=== PATIENT | female | born 1955 | race Two or more races ===

== ENCOUNTER → 2024-10-12 | Outpatient (CLI) | payer MEDICARE, OTHER, SELFPAY ==
--- NOTE | 2024-10-12 | XR_ITS ---
Examination: Screening digital mammography, bilateral Computer aided detection 3-D breast Tomosynthesis, bilateral Date and time of exam: October 12, 2024 1549 hours Compared to mammograms dating to February 20, 2019 Indication: Screening Technique: Nonmagnified MLO, CC views of the breasts to been obtained, reconstructed from 3-D Tomosynthesis images. R2 computer aided detection program utilized for evaluation of suspicious masses and/or abnormal calcifications. 3-D Tomosynthesis images obtained. Findings: Scattered areas of fibroglandular density Benign calcifications 10 mm focal asymmetry upper right breast posterior depth, 5.2 cm from the nipple Impression: BI-RADS Category 0: Incomplete: Need additional imaging evaluation 10 mm focal asymmetry upper right breast posterior depth, 5.2 cm from the nipple, recommend follow-up spot tomographic views upper outer quadrant right breast posterior depth, right breast sonography to complete the workup.
== END | disposition home or self-care (01) ==
PROVIDERS: Referring Provider Family Medicine; Visit Provider Family Medicine
DX: Z12.31 Encounter for screening mammogram for malignant neoplasm of breast (principal); N64.89 Other specified disorders of breast
CPT/HCPCS: 77063; 77067

== ENCOUNTER → 2024-10-14 | Outpatient (CLI) | payer MEDICARE, OTHER, SELFPAY ==
--- NOTE | 2024-10-14 14:56 | XR_ITS ---
Examination: Breast ultrasound, unilateral, right complete Date and time of exam: October 14, 2024 5006 hours INDICATIONS: Mammogram October 12, 2024 10 mm focal asymmetry upper right breast posterior depth Technique: Real-time bueno scale ultrasonographic imaging performed right breast including all 4 quadrants as well as nipple retroareolar and axillary region. Findings: No cystic or solid mass IMPRESSION: BI-RADS Category 1: Negative study
--- NOTE | 2024-10-14 14:56 | XR_ITS ---
Examination: Diagnostic digital mammography, unilateral, right Computer aided detection 3-D breast Tomosynthesis, unilateral Date and time of exam: October 14, 2024 1527 hours INDICATIONS: Mammogram October 12, 2024 10 mm focal asymmetry upper right breast Technique: Nonmagnified MLO, CC views of the right breast have been obtained, reconstructed from 3-D Tomosynthesis images. R2 computer aided detection program utilized for evaluation of suspicious masses and/or abnormal calcifications. 3-D Tomosynthesis images obtained. Findings: Scattered areas of fibroglandular density. Persistent focal asymmetry upper right breast MLO view Impression: BI-RADS category 3: Probably benign findings. One additional 6 month right mammogram follow-up is needed
== END | disposition home or self-care (01) ==
PROVIDERS: PCP Family Medicine; Referring Provider Family Medicine; Visit Provider Family Medicine
DX: R92.331 Mammographic heterogeneous density, right breast (principal); N64.89 Other specified disorders of breast
CPT/HCPCS: 76641; 77061; 77065; G0279

== ENCOUNTER 2024-12-09 16:12 | Emergency (ER) | payer MEDICARE, OTHER, SELFPAY ==
[2024-12-09 16:14] VITALS: BMI 23.4
[2024-12-09 17:09] VITALS: BP 138/55; PULSE 62; RESP 18; TEMP 36.4; O2SAT 99
--- NOTE | 2024-12-09 17:14 | XR_ITS ---
Examination: AP chest single view TECHNIQUE: AP portable upright chest single view Exam date and time: December 09, 2024 1722 hours INDICATIONS: Dizziness today FINDINGS: Normal heart size. Lungs are clear. Moderate osteopenia IMPRESSION: No active disease
--- NOTE | 2024-12-09 17:14 | XR_ITS ---
Examination: CT brain head without contrast. 2-D sagittal coronal reconstructions Date and time of exam:December 09, 2024 1113 hours Dizziness and ringing in ears beginning 2 days ago CTDI: vol (mGy):46.31 DLP: (mGycm):908 Technique: Multiple CT axial sections of the brain have been obtained, 5 mm slice thickness. Contrast has not been administered. Low dose protocols were performed. One or more of the following dose reduction techniques were used; automated exposure control, adjustment of the mA and/or KV according to patient size, use of iterative reconstruction technique. Findings: No significant ventricular enlargement. Probable areas of encephalomalacia left parietal lobe right posterior temporal lobe Intra-axial or extra-axial hemorrhage density is not seen. No mass effect or midline shift Basal cisterns are not remarkable. Fourth ventricle is midline. Cranial vault intact. Impression: Negative for acute hemorrhage, mass effect or midline shift Probable areas of encephalomalacia as above but clinical correlation advised If symptoms persist, consider brain MRI follow-up, stroke protocol
--- NOTE | 2024-12-09 17:14 | EKG_ITS ---
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
--- NOTE | 2024-12-09 17:15 | EDRME_ITS ---
Rapid Medical Screening Exam RME Arrival date/time: 12/09/24 16:12 This is a 69-year-old female presents to the emergency department with complaints of dizziness x 1 day associated with nausea. Recent upper respiratory infection. I have greeted and performed a focused initial assessment of this patient. Ini tial appropriate labs ordered at this time. A comprehensive ED assessment and evaluation of the patient and analysis of all test and completion of medical decision making process will be conducted by additional ED provider. Chief Complaint: Dizziness Time Seen by Provider: 12/09/24 16:51 Vital signs: Vital Signs Temperature 97.5 F 12/09/24 17:09 Pulse Rate 62 12/09/24 17:09 Respiratory Rate 18 12/09/24 17:09 Blood Pressure 138/55 H 12/09/24 17:09 Pulse Oximetry (%) 99 12/09/24 17:09 Oxygen Delivery Method Room Air 12/09/24 17:09
--- NOTE | 2024-12-09 17:16 | XR_ITS ---
Examination: CTA brain, head with intravenous contrast. 2-D sagittal, coronal reconstructions. 3-D reconstructions. Exam date and time: December 09, 2024 1113 hours INDICATIONS: Onset dizziness head pain today CTDI: vol (mGy) 45.5 DLP: (mGycm) 942 Technique: Multiple CTA axial brain, head carotid images post intravenous contrast injection 75 cc, [id number]. 2-D sagittal, coronal reconstructions. 3-D reconstructions, 3-D post processing including vascular maximum intensity projection images. Low dose protocols were performed. One or more of the following dose reduction techniques were used; automated exposure control, adjustment of the mA and/or KV according to patient size, use of iterative reconstruction technique. Findings: No cerebral large vessel arterial occlusions or thrombus M1 segments middle cerebral arteries middle cerebral artery trifurcation vessels fill Anterior cerebral posterior cerebral artery branches fill with no large vessel occlusions IMPRESSION: No cerebral large vessel arterial occlusions If symptoms persist, consider brain MRI follow-up stroke protocol
[2024-12-09 18:27] LABS: Basophils % (Auto) 0 % (0-2.5); Eosinophils % (Auto) 0 % (0-10); Hematocrit 33.9 % (36.0-46.0); Hemoglobin 11.8 g/dL (12.0-16.0); Immature Granulocytes % (Auto) 1 % (0-0); Immature Granulocytes Auto 0.06 Thou/mm3 (0.00-0.00); Lymphocytes % (Auto) 17 % (10-50); Mean Corpuscular HGB Conc 34.8 g/dl (31.0-37.0); Mean Corpuscular Hemoglobin 31.8 pg (25.0-35.0); Mean Corpuscular Volume 91 fL (80-100); Monocytes # (Auto) 0.6 Thou/mm3 (0.0-0.8); Monocytes % (Auto) 5 % (0-12); Neutrophils # (Auto) 8.9 Thou/mm3 (1.8-7.7); Neutrophils % (Auto) 77 % (37-80); Nucleated Red Blood Cell % 0 /100 WBC (0); Platelet Count 312 Thou/mm3 (140-440); RDW Standard Deviation 40.7 fL (36.4-46.3); Red Blood Count 3.71 Miln/mm3 (4.00-5.20); White Blood Count 11.6 Thou/mm3 (3.6-11.0)
[2024-12-09 18:28] LABS: Collection Type, Urine Clean Catch; Squamous Epithelial Cell,Urine 0 /hpf (0-5)
[2024-12-09 18:42] LABS: Bilirubin,Urine Negative (Negative); Blood,Urine Negative (Negative); Clarity,Urine Clear (Clear/Hazy); Color,Urine Lt-Yellow (Lt Yel-Yel); Glucose, Urine Negative (Negative); Ketones,Urine Negative (Negative); Leukocyte Esterase,Urine Negative (Negative); Nitrite,Urine Negative (Negative); PH,Urine 7.5 (5.0-7.0); Protein,Urine Negative (Neg - Trace); RBC,Urine 1 /hpf (0-3); Specific Gravity,Urine 1.012 (1.001-1.035); Urobilinogen,Urine Negative mg/dL (0.0-1.0); WBC,Urine 2 /hpf (0-5)
[2024-12-09 18:52] LABS: Partial Thromboplastin Time 24.8 Seconds (22.0-36.0); Prothrombin Time 10.9 Seconds (9.0-12.2)
[2024-12-09 18:56] LABS: Alanine Aminotransferase 18 U/L (10-49); Albumin, Serum 4.9 gm/dL (3.4-4.8); Albumin/Globulin Ratio 1.5 (1.2-2.2); Alkaline Phosphatase 83 U/L (46-116); Anion Gap 15 (7-16); Aspartate Amino Transferase 24 U/L (0-34); BUN/Creatinine Ratio 16 Ratio (12-20); Bilirubin,Total 0.5 mg/dL (0.3-1.2); Blood Urea Nitrogen 13 mg/dL (9-23); Calcium 9.9 mg/dL (8.3-10.6); Calcium (Corrected) 9.9 mg/dL (8.5-10.1); Carbon Dioxide 23.1 mMol/L (20.0-31.0); Chloride 104 mMol/L (98-107); Creatinine (Component) 0.8 mg/dL (0.6-1.3); Estimated Creatinine Clearance 46.3 mL/min (>60); Globulin 3.3 gm/dL (2.3-3.5); Glucose 117 mg/dL (74-106); Osmolality,Calculated 284 (275-295); Potassium 3.2 mMol/L (3.4-5.1); Sodium 142 mMol/L (136-145); Total Protein 8.2 gm/dL (5.7-8.2); Troponin I < 0.020 ng/mL (0.0-0.045); eGFR > 60 See Note
[2024-12-09 20:35] LABS: Amphetamine/Methamp Scrn,U Negative (Negative); Barbiturate Screen,Urine Negative (Negative); Benzodiazepines Screen,Urine Negative (Negative); Benzoylecgonine Screen, Ur Negative (Negative); Fentanyl Screen,Urine Negative (Negative); Opiate Screen,Urine Negative (Negative); THC Screen,Urine Negative (Negative)
[2024-12-09 23:34] VITALS: BP 138/69; PULSE 60; RESP 16; TEMP 37; O2SAT 99
--- NOTE | 2024-12-10 01:18 | PRELIM_ITS ---
CT scan of the head without intravenous contrast (axial sections with sagittal and coronal reformats) December 09, 2024 2309 hours Clinical history: dizziness Reference is made to the prior report dated June 24, 2024. No images available. Findings: There is no evidence of intracranial hemorrhage, mass effect or midline shift. There are mild periventricular white matter hypodensities, suggestive of chronic small vessel ischemia. There are areas of encephalomalacia in the right temporal and left parietooccipital lobe. There is mild volume loss. The calvarium is unremarkable. The mastoid air cells are clear. There is a fluid level in the right maxillary sinus. Impression: No evidence of intracranial hemorrhage, mass effect or midline shift. Areas of encephalomalacia in the right temporal and left parietooccipital lobe. Right maxillary sinusitis. Other findings as described above. Report Electronically Signed By: Zbigniew Alfaro 12/10/2024 1:18:32 AM [EST]
--- NOTE | 2024-12-10 01:21 | PRELIM_ITS ---
CT angiogram of the head with intravenous contrast (axial sections with sagittal and coronal reformats) December 09, 2024 2313 hours Clinical History: dizziness, ringing ears Reference is made to the prior report dated December 30, 2021. Findings: Head: The internal carotid, middle and anterior cerebral arteries are patent bilaterally. The intracranial vertebral arteries are patent. The vertebrobasilar junction, basilar and posterior cerebral arteries are patent. The left vertebral artery is dominant. No evidence of large vessel occlusion, critical stenosis or aneurysm. Impression: No evidence of large vessel occlusion, critical stenosis or aneurysm. Report Electronically Signed By: Zbigniew Alfaro 12/10/2024 1:20:59 AM [EST]
[2024-12-10 03:30] VITALS: BP 144/76; PULSE 60; RESP 18; TEMP 36.9; O2SAT 99
--- NOTE | 2024-12-10 04:53 | EDNOTE_ITS ---
ED Dizzyness RME/HPI General Chief Complaint: Dizziness Stated Complaint: DIZZINESS, VOMITING, SOB FOR 2-3 HOURS Time Seen by Provider: 12/09/24 16:51 Arrival date/time: 12/09/24 16:12 RME / HPI RME / HPI Narrative: 12/09/24 16:12 This is a 69-year-old female presents to the emergency department with complaints of dizziness x 1 day associated with nausea. Recent upper respiratory infection. I have greeted and performed a focused initial assessment of this patient. Initial appropriate labs ordered at this time. A comprehensive ED assessment and evaluation of the patient and analysis of all test and completion of medical decision making process will be conducted by additional ED provider. Dr. Nunez?s Main ED Evaluation: 69yo female with a history of HTN presents to the ED for a chief complaint of dizziness x 1 day. She describes it as the room is spinning, reporting it worsens when she moves. She reports associated N/V and difficulty ambulating. She denies any numbness, tingling, difficulty speaking, difficulty swallowing or any other associated symptoms. She states she had one similar episode last month, but endorses her symptoms today were significantly worse. No known allergies. Related Data Previous Rx's ?Medication ?Instructions ?Recorded lorazepam 0.5 mg tablet 0.5 mg PO BID PRN anxiety #1 4 tabs 12/10/24 meclizine 25 mg tablet 25 mg PO TID PRN dizziness 1 0 days 12/10/24 #30 tabs Allergies Allergy/AdvReac Type Severity Reaction Status Date / Time No Known Allergies Allergy Verified 12/09/24 16:14 Review of Systems Review of Systems Systems Reviewed: All systems reviewed, normal except as documented Past Medical History Past Medical History CARDIAC: Positive Hypertension; Negative Cardiac Disorders RESPIRATORY: Negative Asthma GENITOURINARY: Negative Renal Disease ENDOCRINE: Negative Diabetes Mellitus Type 2 HEMATOLOGIC: Negative Sickle Cell Disease Social History SMOKING STATUS: Never smoker ED Exam Narrative Physical exam: GENERAL APPEARANCE: alert and oriented x 4, well-developed, well-nourished, no acute distress VITALS: All vitals were reviewed and the pulse ox is 99% on room air, which is normal according to my interpretation. HEENT: Normocephalic, atraumatic; pupils equal, round, reactive to light; EOMI; right horizontal nystagmus that is exacerbated with positional changes; mucous membranes pink, moist; oropharynx clear NECK: Supple LUNGS: CTABL; no wheezes, no rales, no rhonchi HEART: Regular rate, regular rhythm; normal S1, S2; no murmurs ABDOMEN: non distended; normal BS; soft, no tenderness, no guarding, no rebound; no masses, no organomegaly, no hernia BACK: no CVA tenderness EXTREMITIES: atraumatic; no edema NEUROLOGIC: awake; alert and oriented x4; cranial nerves II-XII grossly intact; no focal sensory or motor deficits Cerebellar exam: no intention tremor, steccato speech, dysmetria or dysdiadochokinesia PSYCHIATRIC: appropriate mood and affect SKIN: warm, dry, normal color; no rashes Course Quality Measures none Orders Category Date Time Status Bedside Blood Glucose NOW Care 12/09/24 17:[address] Screening NOW Care 12/09/24 17:16 Active EKG (ED ONLY) *Do not use* NOW Care 12/09/24 17:[address] angio carotid w head w Stat Exams 12/09/24 17:[address] head/brain wo con Stat Exams 12/09/24 17:14 Taken EKG (ED Only) Stat Exams 12/09/24 17:14 Draft XR chest 1V portable Stat Exams 12/09/24 17:14 Completed CBC Stat Lab 12/09/24 17:54 Completed Comprehensive Metabolic Panel Stat Lab 12/09/24 17:54 Completed Drug Screen,Urine Stat Lab 12/09/24 18:13 Completed Partial Thromboplastin Time Stat Lab 12/09/24 17:54 Completed Prothrombin Time with INR Stat Lab 12/09/24 17:54 Completed Troponin I Stat Lab 12/09/24 17:54 Completed Urinalysis Stat Lab 12/09/24 18:13 Completed LORazepam [Ativan] Med 12/10/24 04:52 Once 0.5 mg PO X1 ONE Meclizine HCl [Antivert] Med 12/10/24 04:52 Once 25 mg PO X1 ONE Vital Signs Vital signs: Vital Signs Temperature 97.5 F 12/09/24 17:09 Pulse Rate 62 12/09/24 17:09 Respiratory Rate 18 12/09/24 17:09 Blood Pressure 138/55 H 12/09/24 17:09 Pulse Oximetry (%) 99 12/09/24 17:09 Oxygen Delivery Method Room Air 12/09/24 17:09 Dizziness MDM Narrative MDM Narrative:: Scribe Attestation: 12/10/24 Paige Butlre am scribing for and in the presence of Dr. Nunez. Patient data External records reviewed:: [facility] previous records (Per chart review, patient was seen here on 12/30/21 for cerebral parenchymal hemorrhage.) Clinical information provided by:: patient Social determinants that could affect healthcare access:: none Patient has the following chronic illnesses:: HTN How is presenting disease/condition affected by chronic disease/condition?: uneffected by Evaluation data The following diagnostics were reviewed and interpreted by me:: lab results and radiology exam(s) Lab and/or radiology exams considered but not ordered:: none Interpretation Summary: WBC count is 11.6, PT and INR are normal, PTT is normal, Troponin is normal, Glucose is 117, according to my interpretation. EKG done at 1734, NSR, rate of 60, normal axis, no ectopy, no acute ischemia, according to my interpretation. [facility] Report Signed Patient: BRENDA GARNETT [employer] Record#: [id number] Birthdate: 1955 Age/Sex: 69 / F Location: [facility] Attending Dr: Ordering Physician: Jose [facility]USLyndsey Patel Date of Service: 12/09/24 Procedure(s): XR chest 1V portable Accession Number(s): [id number] cc: Miah Rodriguez MD; Jose RoeC[facility]AMPUSLyndsey Patel~ Examination: AP chest single view TECHNIQUE: AP portable upright chest single view Exam date and time: December 09, 2024 1722 hours INDICATIONS: Dizziness today FINDINGS: Normal heart size. Lungs are clear. Moderate osteopenia IMPRESSION: No active disease Dictated By: Miah Rodriguez MD Signed By: <Electronically signed by Miah Rodriguez MD in [place]> 12/09/24 1728 Medications / Prescriptions Medications or Prescriptions considered but not ordered:: none Medication administrations:: Medication Administration History Lorazepam (Lorazepam 0.5 Mg Tablet) 0.5 mg PO X1 ONE Stop: 12/10/24 04:53 Meclizine HCl (Meclizine Hcl 25 Mg Tablet) 25 mg PO X1 ONE Stop: 12/10/24 04:53 see above Consultations Consultation(s) initiated? (list below): No Diagnosis Dizziness Differential Diagnosis: other (peripheral vertigo, hemorrhagic stroke, cerebellar ischemia stroke, basilar artery occlusion) Most likely diagnosis given after review of the tests above:: see clinical impression below Admission Indicated Admission indicated?: not indicated Admission Request Was there a request for admission?: No Disposition Plan Disposition Plan: Discharge Discharge Attestation Discharge Attestation: The patient and all family members were given an opportunity to ask questions and understood the discharge instructions. Discharge instructions specifically effects, indications for sooner follow up or return to the emergency department, and the expected course of current diagnosis. Patient condition: Stable Discharge Plan Plan Patient Disposition: HOME (Self Care) Disposition Comment: Stable for discharge home Patient condition on transfer: Stable Prescriptions/Referrals Prescriptions/Med Rec: New meclizine 25 mg tablet 25 mg PO TID PRN (Reason: dizziness) 10 Days Qty: 30 0RF lorazepam 0.5 mg tablet 0.5 mg PO BID PRN (Reason: anxiety) Qty: 14 0RF Referrals: Oren Haider MD [Primary Care Provider] - In 1 week Problem List Clinical Impression: Benign paroxysmal positional vertigo Patient/Caregiver Discharge Instructions Discharge Activity: activity as tolerated Education Materials: Anatomy of the Inner Ear, ED BPV Vertigo Additional Instructions: Please return to the emergency department if you have any worsening or any further medical problems and we will help you. Otherwise you should follow-up with your primary care doctor within the next several days. When you follow up with your primary care doctor, please let them know know that you should be referred to a ear nose and throat doctor. The ear nose and throat doctor may be able to help make sure that the this vertigo does not come back. Print Language: Brazilian Stand Alone Forms: [employer] Award Info., Patient Portal Info Letter
[2024-12-10] MEDS: MECLIZINE HCL 25 MG TABLET PO (04:58)
[2024-12-10] MEDS: LORazepam 0.5 MG TABLET PO (04:58)
== END 2024-12-10 05:06 | disposition home or self-care (01) ==
PROVIDERS: Nurse Practitioner Primary Care; Emergency Provider Emergency Medicine; PCP Family Medicine
DX: H81.10 Benign paroxysmal vertigo, unspecified ear (principal); I10 Essential (primary) hypertension
CPT/HCPCS: 36415; 70450; 70496; 70498; 71045; 80053; 80307; 81001; 84484; 85025; 85610; 85730; 93005; 99285; A4649; Q9967; A9270

== ENCOUNTER → 2025-04-28 | Outpatient (CLI) | payer OTHER, MEDICARE, SELFPAY ==
--- NOTE | 2025-04-28 10:30 | XR_ITS ---
Examination: Diagnostic digital mammography, unilateral, right Computer aided detection 3-D breast Tomosynthesis, unilateral Date and time of exam: April 28, 2025 1009 hours INDICATIONS: Mammogram October 14, 2024, mammogram October 12, 2024 10 mm focal asymmetry upper right breast Technique: Nonmagnified MLO, CC views of the right breast have been obtained, reconstructed from 3-D Tomosynthesis images. R2 computer aided detection program utilized for evaluation of suspicious masses and/or abnormal calcifications. 3-D Tomosynthesis images obtained. Findings: Scattered areas of fibroglandular density Stable focal asymmetry upper right breast on the MLO view No suspicious masses Impression: BI-RADS category 2: Benign findings Recommend yearly follow-up mammography
== END | disposition home or self-care (01) ==
PROVIDERS: Referring Provider Family Medicine; Visit Provider Family Medicine
DX: R92.321 Mammographic fibroglandular density, right breast (principal)
CPT/HCPCS: 77061; 77065; G0279